=== PATIENT | female | born 1970 | race Caucasian/White ===

== ENCOUNTER → 2017-01-19 14:43 | Outpatient (CLI) | payer BC | END | disposition home or self-care (01) | LOC: D.CT 14:43 | DX: R31.21 Asymptomatic microscopic hematuria (principal) ==

== ENCOUNTER 2017-06-23 05:32 | Day surgery (SDC) | payer BC ==
[2017-06-22 16:22] LABS: HEMATOCRIT 39.5 % (36.0-48.0); HEMOGLOBIN 13.7 g/dL (12-16); MCH 29.8 pg (26.0-34.0); MCHC 34.7 g/dL (31.0-37.0); MCV 86.1 fL (80.0-100.0); MEAN PLATELET VOLUME 9.4 fL (7.4-10.4); RBC 4.59 10x6/uL (4.00-5.40); RDW 12.4 % (11.5-14.5); WBC 6.4 10x3/uL (4.8-10.8)
--- NOTE | 2017-06-22 21:22 | NUR ---
SHIFT ASSESSMENT COMPLETED. PACKING REMOVED AT THIS TIME. PT C/O PAIN 01/24. ADMINISTERED PRESCRIBED PRN TORADOL PER ORDER. DENIES FURTHER NEEDS. WILL MONITOR. SIDE RAILS X 2. BED LOW. CALL LIGHT IN REACH.
[~2017-06-23 05:32] MED LIST: EXCEDRIN CAPLET1 TAB; GLYCOLAX527 GM; LINZESS290 MCG; MAGNESIUM GLUC550 MG PO; PROVENTIL/2.5 MG/3 M INH; ZOFRAN ODT4 MG/UDTAB PO
[2017-06-23 12:19] VITALS: BP 116/69; BMI 21.3
[2017-06-23 13:26] LABS: APPEARANCE HAZY (CLEAR); BILIRUBIN NEGATIVE (NEGATIVE); COLOR STRAW (YELLOW); GLUCOSE NEGATIVE (NEGATIVE); KETONE NEGATIVE (NEGATIVE); NITRITE NEGATIVE (NEGATIVE); PROTEIN NEGATIVE (NEGATIVE); SPECIFIC GRAVITY 1.005 (1.005-1.020); UROBILINOGEN NORMAL (NORMAL)
[2017-06-23 16:14] VITALS: BP 101/53
[2017-06-23 16:17] VITALS: BP 101/53; BMI 21.3
--- NOTE | 2017-06-23 16:23 | NUR ---
PT ADMITTED TO FLOOR FROM RECOVERY ROOM. VSS. ASSESSMENT COMPLETE AT THIS TIME.
--- NOTE | 2017-06-23 19:14 | OP ---
PATIENT NAME: PIEDAD SIMMONS MEDICAL RECORD: [id number] :68 LOCATION:[facility] ADMISSION DATE:06/23/17 SURGEON: MARLENA WAGGONER MD DATE OF OPERATION: 06/23/2017 SURGEON: Marlena Waggoner MD ANESTHESIA: General anesthesia by Zachery Patel CRNA PREOPERATIVE DIAGNOSES: 1. Possible retained old pubovaginal sling mesh (none found to be present). 2. Female stress urinary incontinence. PROCEDURES: Cystoscopy and pubovaginal sling insertion with [employer] Obtryx graft. BLOOD LOSS: 20 mL. FINDINGS: 1. Herpes genitalis outbreak on the right labia majora. 2. No retained pubovaginal sling found, scar tissue only. 3. Stress urinary incontinence. 4. On cystoscopy, she had single ureteral orifices bilaterally. No bladder tumors seen and no bladder injury noted. CLINICAL HISTORY: This is a 47-year-old female who previously had an [employer] mesh pubovaginal sling placed by Dr. Landeros via a transobturator approach. She had a hysterectomy at the same time. She had trouble with incomplete bladder emptying afterwards and recurrent urinary tract infections. Finally, in October of 2012, Dr. Mann removed what I thought to be part of the sling and now she has ongoing pain from the vaginal area as well as stress urinary incontinence. She has contacted hearing aid repairer in a class action law suit against [employer] and [employer]. They have requested that any of the old pubovaginal sling mesh that we remove be sent to their facility for analysis. As far as the patient is concerned, she would like to be continent once more. She is aware of the risks of mesh use including infection, graft erosion, graft exposure, possible injury to adjacent organs. She is also aware that she may end up with persistent stress incontinence, exacerbation of any urge incontinence, urinary retention, or incomplete bladder emptying. SHE IS ALLERGIC TO AMOXICILLIN, CODEINE, ERYTHROMYCIN, NEOSPORIN, LATEX, AND TETANUS. She was given clindamycin and gentamicin on-call to the OR. Prior to surgery, in the preoperative holding area, the patient was complaining of dysuria. We performed a stat urinalysis and noted no signs of urinary tract infection. DESCRIPTION OF PROCEDURE: The patient was given induction of general anesthesia while in the supine position. She was then placed in dorsal lithotomy position and prepped and draped. When we prepped her, we noticed that she had an outbreak of genital herpes on the right labia majora and this would be in the trajectory of the urinary stream and this would probably account for her dysuria that she was complaining about. A weighted speculum was placed to hold the posterior vaginal wall down. Nylon #2 sutures were used as stay sutures to hold the labia majora laterally to the medial thighs. A Parisi catheter was placed into the bladder to drain the bladder. The anterior vaginal wall was infiltrated with Pitressin solution. Twenty units of Pitressin was dissolved in OPERATIVE REPORT [id number] PIEDAD SIMMONS 100 cc of injectable saline and this was used for hydrodissection. With the patient asleep, I could palpate the anterior vaginal wall freely and there was no palpable graft material. When I examined her in the office, she was always so tender that it was difficult to clearly identify the graft material. The midline incision in the anterior vaginal wall was seen from her previous surgery. I reopened the same incision. Metzenbaum scissors were used to dissect laterally to the level of the obturator membrane on each side. She had some significant scarring, but no graft material was found at all. The obturator membranes in fact were quite clean. There was no defect in them. At this point, we decided to place the transobturator graft. Landmarks for the insertion of the trocar was just inferior to the insertion of the adductor longus muscle onto the descending pubic ramus. This was marked out on each side and then a stab incision was made using a #15 blade. The retropubic passage of the trocar was made and the exit of the trocar was through the anterior apex of the obturator membrane. This was done on each side. The tip of the Obtryx graft was clipped to the tip of the needle and then the needle was withdrawn to allow transobturator passage of the graft. The graft arms are blue in color to facilitate identification during cystoscopy if any bladder injury occurs. We then removed the Parisi catheter and then cystoscopy was performed. No injury to the bladder was seen. Through the cystoscope, I filled the bladder up completely. The cystoscope was then removed, leaving her with a full bladder. The tab in the midportion of the graft was then cut and removed entirely. The graft was seen to lie completely flat under the midurethra. When I applied suprapubic pressure manually, I could see leakage of urine out of the urethra. We gradually increased the tension on the graft arms until there came a point when there was no further leakage of urine with Valsalva maneuvers. The bladder was again filled with the cystoscope and the procedure was repeated. The tension was sufficient to prevent leakage. At this point, the sutures were cut on the graft arms and the clear plastic sheath material on each graft arm was completely removed. A Leticia clamp was placed under the mid urethra between the graft and the urethra to allow the clear plastic material to be completely removed without increasing the tension on the graft. Once the wrapping materials were completely removed, the graft was cut at the skin exit site. This would allow the graft to retract under the skin surface. The vaginal wound was irrigated out using saline with gentamicin solution. A running 4-0 Monocryl was used to close the vaginal incision. The stab incisions in the groin were closed with simple interrupted 4-0 Vicryl. Vaginal packing was then placed. This was Kerlix infiltrated with estrogen cream. This will be removed this evening. We will also get her started on Zovirax for her genital herpes. TRANSINT:[id number] Voice Confirmation ID: [id number] DOCUMENT ID: [id number] MARLENA WAGGONER MD at [id number] CC: [id number] DICTATION DATE: 06/23/17 1536 [employer]CHOOL OCCUPATIONAL THERAPIST: 06/23/17 1723 ADM IN [facility] [address] [place] [address]
--- NOTE | 2017-06-23 19:15 | NUR ---
RECIEVED SHIFT REPORT. PT IS LYING IN BED. ALERT AND ORIENTED AND ABLE TO VERBALIZE NEEDS. IV IS PATENT AND SALINE LOC AT THIS TIME. PT IS AMBULATORY BUT WAS INSTRUCTED TO CALL FOR ANY ASSISTANCE NEEDED. PT STATES PAIN IS 4/10. NO NEEDS ARE VERBALIZED AT THIS TIME. WILL CONTINUE TO MONITOR. SIDE RAILS ARE UP X 2. BED IS IN LOWEST POSITION. CALL LIGHT IS WITHIN REACH.
[2017-06-23 20:00] VITALS: BP 103/62
[2017-06-24 04:00] VITALS: BP 90/44
--- NOTE | 2017-06-24 07:53 | NUR ---
AWAKE AND ALERT. ORIENTED X3. NO C/O AT THIS TIME. LUNGS ARE CLEAR BILATERALLY, NO COUGH NOTED. SKIN IS INTACT WITHOUT REDNESS EXCEPT 2 SMALL SITES IN [place] AREA WHICH ARE CLEAN AND DRY. SL TO LEFT HAND IS PATENT WITHOUT REDNESS AT INSERTION SITE. DENIES NEEDS.
[2017-06-24 08:49] VITALS: BP 104/50
--- NOTE | 2017-06-24 09:00 | NUR ---
ATE ALL OF BREAKFAST. NO C/O AFTER MEAL. DENIES NEEDS.
[2017-06-24] MEDS ORDERED: ZOVIRAX200 MG PO (10:32)
[2017-06-24] MEDS ORDERED: ULTRAM50 MG PO (10:34)
--- NOTE | 2017-06-24 10:52 | NUR ---
DISCHARGED TO HOME AMBULATORY WITH FAMILY. DISCHARGE INSTRUCTIONS GIVEN BOTH VERBALLY AND WRITTEN. ALL QUESTIONS ANSWERED. PATIENT VERBALIZED UNDERSTANDING OF SAME. NEEDED PRESCRIPTIONS GIVEN TO PATIENT. ALL BELONGINING WITH PATIENT. SL TO LEFT HAND D/C WITH CATHETER INTACT.
== END 2017-06-24 10:45 | disposition home or self-care (01) ==
LOC: OBSVTIME → D.OPS 05:32 → D.PAN 12:00 → D.OPS 12:30 → D.MS 15:38 → D.OPS 15:38 → OBSVTIME 15:38 → D.MS 15:38 → D.OPS 06-24 10:45
PROVIDERS: Anesthesiology; Urology
DX: N39.3 Stress incontinence (female) (male) (principal); A60.04 Herpesviral vulvovaginitis; Z88.5 Allergy status to narcotic agent; Z88.0 Allergy status to penicillin; Z88.7 Allergy status to serum and vaccine; Z88.1 Allergy status to other antibiotic agents; Z88.3 Allergy status to other anti-infective agents; Z91.040 Latex allergy status; Z01.812 Encounter for preprocedural laboratory examination